=== PATIENT | male | born 1980 | race Caucasian/White ===

== ENCOUNTER → 2021-12-04 | Outpatient (CLI) | payer OTHER | END | disposition home or self-care (01) | LOC: LAB 17:12 → LAB SHORT 17:12 | PROVIDERS: Family Medicine | DX: F11.20 Opioid dependence, uncomplicated (principal) | CPT/HCPCS: G0480 ==

== ENCOUNTER 2022-12-06 09:41 | Emergency (ER) | payer OTHER ==
[~2022-12-06] VITALS: Ht 185.4 cm; Wt 90.7 kg
[2022-12-06] MEDS ORDERED: CEPH500 PO (10:32)
== END 2022-12-06 10:45 | disposition home or self-care (01) ==
LOC: ER 09:41
DX: S61.011A Laceration without foreign body of right thumb without damage to nail, initial encounter (principal); F17.200 Nicotine dependence, unspecified, uncomplicated; W26.8XXA Contact with other sharp object(s), not elsewhere classified, initial encounter; Z88.0 Allergy status to penicillin
CPT/HCPCS: 12001; 99282-25; A9270

== ENCOUNTER → 2023-03-15 | Outpatient (CLI) | payer OTHER ==
[~2023-03-15] MED LIST: CEPH500 PO
== END | disposition home or self-care (01) ==
LOC: LAB SHORT 14:10 → LAB 14:10
DX: L03.90 Cellulitis, unspecified (principal)
CPT/HCPCS: 87070; 87075; 87077; 87147; 87186; 87205

== ENCOUNTER 2023-09-17 18:37 | Emergency (ER) | payer OTHER ==
[~2023-09-17] VITALS: Ht 185.4 cm; Wt 81.7 kg
[2023-09-17 20:13] LABS: BASOPHILS PERCENT AUTO 1 % (0-2); EOSINOPHILS ABSOLUTE AUTO 1.25 K/mm3 (0.00-0.68); EOSINOPHILS PERCENT AUTO 10 % (0-6); Hematocrit 36.7 % (37.0-53.0); IMMATURE GRAN ABSOLUTE AUTO 0.03 K/mm3 (0.00-0.10); IMMATURE GRAN PERCENT AUTO 0 % (0-1); LYMPHOCYTES ABSOLUTE AUTO 2.14 K/mm3 (0.84-5.20); LYMPHOCYTES PERCENT AUTO 18 % (21-46); MONOCYTES PERCENT AUTO 8 % (4-13); Mean Corpuscular HGB 30.3 pg (26.0-34.0); Mean Corpuscular HGB Conc 32.7 g/dL (31.5-36.5); Mean Corpuscular Volume 93 fL (80-100); Mean Platelet Volume 9.4 fL (9.1-12.4); NEUTROPHILS ABSOLUTE AUTO 7.68 K/mm3 (1.96-9.15); NEUTROPHILS PERCENT AUTO 63 % (41-73); Platelet Count 342 K/mm3 (150-400); RDW Standard Deviation 44.4 fL (35.1-46.3); Red Blood Cell Count 3.96 M/mm3 (4.30-5.90)
[2023-09-17 20:41] LABS: Albumin, Blood 3.3 g/dL (3.4-5.0); Albumin/Globulin Ratio 0.9 (0.8-1.8); Bilirubin, Total 0.3 mg/dL (0.1-1.0); Bun/Creatinine Ratio 42.5 (12.0-20.0); Calcium, Blood 8.5 mg/dL (8.5-10.1); Creatinine, Blood 0.61 mg/dL (0.60-1.20); Globulin, Blood 3.6 g/dL (2.2-4.0); Total Protein, Blood 6.9 g/dL (6.4-8.2)
[2023-09-17 21:32] VITALS: BP 149/78
== END 2023-09-17 21:57 | disposition home or self-care (01) ==
LOC: ER 18:37
PROVIDERS: Emergency Medicine
DX: S22.41XA Multiple fractures of ribs, right side, initial encounter for closed fracture (principal); S00.83XA Contusion of other part of head, initial encounter; S80.01XA Contusion of right knee, initial encounter; S80.02XA Contusion of left knee, initial encounter; F17.200 Nicotine dependence, unspecified, uncomplicated; V86.59XA Driver of other special all-terrain or other off-road motor vehicle injured in nontraffic accident, initial encounter; Z88.0 Allergy status to penicillin
CPT/HCPCS: 70450; 70486; 71260; 72125; 73562-LT; 74177; 80053; 82150; 85025; 96374-59; 99284-25; A9270; J1885; Q9967

== ENCOUNTER 2024-09-15 21:50 | Emergency (ER) | payer OTHER ==
[~2024-09-15] VITALS: Ht 185.4 cm; Wt 90.7 kg
[2024-09-15 22:48] VITALS: BP 148/86
[2024-09-15] MEDS ORDERED: Cleocin HCl150 MG PO (22:52)
[2024-09-15] MEDS ORDERED: Clindamycin HCl 150 MG Cap PO ONE (22:55)
== END 2024-09-15 23:00 | disposition home or self-care (01) ==
LOC: ER 21:50
DX: K04.7 Periapical abscess without sinus (principal); F17.200 Nicotine dependence, unspecified, uncomplicated; Z88.0 Allergy status to penicillin
CPT/HCPCS: 99282; A9270

== ENCOUNTER 2025-07-02 19:42 | Inpatient (IN) | payer OTHER ==
[~2025-07-02] VITALS: Ht 185.4 cm; Wt 94.0 kg
[~2025-07-02 19:42] MED LIST changes: +Cleocin HCl150 MG PO
[2025-07-02] MEDS ORDERED: FentaNYL Citrate 50 MCG/ML 2 ML Injection ONE (19:52)
[2025-07-02] MEDS ORDERED: FentaNYL Citrate 50 MCG/ML 2 ML Injection IV ONE (19:55)
[2025-07-02 20:11] LABS: BASOPHILS ABSOLUTE AUTO 0.05 K/mm3 (0.00-0.23); BASOPHILS PERCENT AUTO 1 % (0-2); EOSINOPHILS ABSOLUTE AUTO 0.06 K/mm3 (0.00-0.68); EOSINOPHILS PERCENT AUTO 1 % (0-6); Hematocrit 41.0 % (37.0-53.0); Hemoglobin 14.3 g/dL (13.5-17.5); IMMATURE GRAN ABSOLUTE AUTO 0.02 K/mm3 (0.00-0.10); IMMATURE GRAN PERCENT AUTO 0 % (0-1); LYMPHOCYTES ABSOLUTE AUTO 2.24 K/mm3 (0.84-5.20); LYMPHOCYTES PERCENT AUTO 32 % (21-46); MONOCYTES ABSOLUTE AUTO 0.58 K/mm3 (0.16-1.47); MONOCYTES PERCENT AUTO 8 % (4-13); Mean Corpuscular HGB Conc 34.9 g/dL (31.5-36.5); Mean Corpuscular Volume 90 fL (80-100); NEUTROPHILS ABSOLUTE AUTO 4.02 K/mm3 (1.96-9.15); NEUTROPHILS PERCENT AUTO 58 % (41-73); NRBC ABSOLUTE 0.00 K/mm3 (0.00-0.02); NRBC Auto 0.0 /100 WBC (0.0-0.2); Platelet Count 277 K/mm3 (150-400); RDW Coefficient Variation 12.4 % (11.7-14.2); RDW Standard Deviation 40.5 fL (35.1-46.3)
[2025-07-02 20:26] LABS: Prothrombin Time Results 10.9 Sec (9.7-11.5)
[2025-07-02] MEDS ORDERED: HYDROmorphone HCl/Pf 1MG SYR IV ONE ×2 (20:30→22:05)
[2025-07-02 20:33] LABS: Alanine Aminotransfer (ALT/SGP 28.0 U/L (12-78); Albumin, Blood 3.8 g/dL (3.4-5.0); Albumin/Globulin Ratio 1.1 (0.8-1.8); Anion Gap 11.0 mmol/L (3-11); Aspartate Aminotrans (AST/SGOT 22.0 U/L (12-37); Bilirubin, Total 0.3 mg/dL (0.1-1.0); Blood Urea Nitrogen 19.0 mg/dL (8-24); CO2, Blood 21.0 mmol/L (21-32); Calcium, Blood 9.4 mg/dL (8.5-10.1); Chloride, Blood 112.0 mmol/L (98-108); Creatinine, Blood 0.85 mg/dL (0.60-1.20); Ethanol (Alcohol), Blood, Med 20.0 mg/dL; Globulin, Blood 3.4 g/dL (2.2-4.0); Glucose, Blood 106.0 mg/dL (70-99); Potassium, Blood 3.8 mmol/L (3.5-5.5); Sodium, Blood 140.0 mmol/L (136-145); Total Protein, Blood 7.2 g/dL (6.4-8.2)
[2025-07-02] MEDS ORDERED: NS 1,000 ML IV SCH (21:35)
[2025-07-02] MEDS ORDERED: Ondansetron HCl 2 MG / ML 2ML Vial IV PRN (21:35)
[2025-07-02] MEDS ORDERED: HYDROmorphone HCl/Pf 1MG SYR IV PRN (21:35)
[2025-07-02] MEDS ORDERED: Ketamine HCl 100 MG / ML 5ML Vial IV ONE ×2 (22:10→22:30)
[2025-07-02 23:00] VITALS: BP 140/91
[2025-07-03] VITALS (19 sets, daily range): BP systolic 117–141; BP diastolic 80–98
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
--- NOTE | 2025-07-03 04:36 | NUR ---
NURSE NOTE PULSE CHECK: PULSES PRESENT RLE HARDER TO FIND. SWELLING IN FOOT HAS INCREASED. PULSE MARKED W/ MARKER AND LISTENED TO W/ DOOPLER. PT WILL NOT ALLOW US TO LIFT LEG ONTO PILLOW BUT DID ALLOW US TO RAISE THE FOOT OF THE BED. ICE BAGS PROVIDED AND PLACED AROUND LEG. MEDICATED PER EMAR. BED IN LOW, CALL LIGHT IN REACH.
[2025-07-03] MEDS ORDERED: HYDROmorphone HCl/Pf 1MG SYR IV PRN (07:40)
[2025-07-03] MEDS ORDERED: Ondansetron HCl 2 MG / ML 2ML Vial IV PRN (07:40)
[2025-07-03] MEDS ORDERED: Magnesium Hydroxide Conc 10 ML UDC PO PRN (07:40)
[2025-07-03] MEDS ORDERED: Ketorolac Tromethamine 15mg Vial IV PRN (07:55)
[2025-07-03] MEDS ORDERED: CeFAZolin Sodium 1,000 MG in NS 50 ML IV SCH (10:00)
--- NOTE | 2025-07-03 10:26 | NUR ---
PT HAS 20G IV TO RIGHT HAND THAT FLUSHES WELL AND FLOWS TO GRAVITY.
[2025-07-03] MEDS ORDERED: FentaNYL Citrate 50 MCG/ML 5 ML Injection ONE (10:30)
--- NOTE | 2025-07-03 10:36 | NUR ---
TO [facility] FOR PROCEDURE. TEARFUL/ANXIOUS. DAUGHTER AT BEDSIDE. RIGHT LOWER EXTREM WITH FRACTURE/OPEN WOUNDS. History, Chart, Medications and Allergies reviewed before start of procedure. Pre-Op teaching done. Pt verbalizes understanding. Patient confirms NPO status and agrees with scheduled surgery.
[2025-07-03] MEDS ORDERED: Dexamethasone Sod Phos 10 MG/ML 1ML VIAL ONE (10:39)
[2025-07-03] MEDS ORDERED: Ondansetron HCl 2 MG / ML 2ML Vial ONE (10:39)
--- NOTE | 2025-07-03 11:14 | NUR ---
PT WITH SURGICAL NURSES @3187
--- NOTE | 2025-07-03 11:27 | NUR ---
ASSUMED CARE OF PT @0700 VSS. AXO4 - PAINFUL - MEDS ADMINISTERED PER EMAR. PT STATES PAIN IS BECOMING INTENSE, PEDAL PULSE SLIGHTLY PALPABLE BUT DOPPLER USED TO CONFIRM. CAP REFILL <3SEC TO TOE BUT DOES HAVE A LIGHTENED COLOR APPEARANCE. SPLINT IN PLACE. PT VERBALIZED FEELING TOES WHEN NURSE PALPATED - WIGGLED TOES. FLUIDS INFUSING. ICE BACKS TO LEG. PT SURGERY TIME BUMPED UP AFTER SEEING DR JACOBS. SEE SURGICAL NURSE ASSUMPTION TIME. AWAITING PT TO ARRIVE BACK TO UNIT.
[2025-07-03] MEDS ORDERED: HYDROmorphone HCl/Pf 1MG SYR ONE (12:15)
--- NOTE | 2025-07-03 13:00 | NUR ---
PT ARRIVES BACK TO UNIT @1240 ALERT BUT SLEEPING POST PAIN MEDS. VSS FIRST SET. EXTERNAL FIXATION PRESENT. WOUND VAC WITH Y SITES TO INSIDE AND OUTSIDE CALF AREA PRESENT - RED DRAINAGE NOTED. JUJU WRAP WITH GAUZE DRESSINGS PRESENT - UNABLE TO VISUALIZE SURGICAL SITE AREAS YET. PULSES SLIGHTLY PALPABLE TO R PEDAL AREA, DOPPLER CONFIRMED PLACEMENT - AREAS MARKED X2. CAP REFILL <3SEC. ON 2LNC CURRENTLY, SPO2 >94%. RESTING CURRENTLY.
[2025-07-03] MEDS ORDERED: FLU VACC TS2025-26(6MOS UP)/PF 45 MCG/0.5 ML SYRINGE IM SCH (14:00)
--- NOTE | 2025-07-03 17:34 | NUR ---
POST SURGERY - SEE REASSUMPTION OF CARE NOTE NO ACUTE CHANGES TO PT'S CONDITION. REMAINS PAINFUL TO RLEG - PAIN MEDS PER EMAR BEING ADMINISTERED. DRESSING TO R LEG REMAINS CDI WITH SMALL AMOUNT OF SANGUIONOUS DRAINAGE TO FIXATION BRYCE SITED, SWELLING DECREASED TO LEG. PEDAL PULSES PRESENT, MARKED ON 2 SITES, DOPPLER BEING UTILIZED TO VERIFY PULSE POSITIONING. COBRA TRANSFER ORDERS PLACED - PT GOING TO [facility]- FAMILY IN ROOM AND AWARE. UPDATED ON SURGICAL STATUS, PROCEEDINGS, AND INCLINATION FOR TRANSFER. [facility] TO ROOM, REPORT GIVEN. VSS. MEDICATED FOR PAIN ONCE MORE. FLUIDS GIVEN TO AMBULANCE TEAM TO INFUSE ORDERED. WOUND VAC REMINED PATEWNT - 200ML SANGUINOUS OUTPUT. ZAYAS PATENT AND DRAINING. EXTERNAL FIXATION STABLE. PT OUT OF ROOM VIA TARYN @[id number].
--- NOTE | 2025-07-03 18:06 | NUR ---
REPORT GIVEN TO JOSE LUIS CONTRERAS
[2025-07-04] MEDS ORDERED: Enoxaparin 40 MG/0.4 ML SYR SC SCH (09:00)
== END 2025-07-03 17:50 | disposition short-term general hospital (02) | DRG 493 ==
LOC: ER 19:42 → SURS 21:36
PROVIDERS: Emergency Medicine; Orthopaedic Surgery; ADMIT Surgery
PROC: 0KNS0ZZ Release Right Lower Leg Muscle, Open Approach (ICD-10-PCS; 2025-07-03)
PROC: 0QSG35Z Reposition Right Tibia with External Fixation Device, Percutaneous Approach (ICD-10-PCS; principal; 2025-07-03 10:30)
DX: S82.251A Displaced comminuted fracture of shaft of right tibia, initial encounter for closed fracture (principal); T79.A21A Traumatic compartment syndrome of right lower extremity, initial encounter; S82.451A Displaced comminuted fracture of shaft of right fibula, initial encounter for closed fracture; F17.210 Nicotine dependence, cigarettes, uncomplicated; M54.2 Cervicalgia; F10.10 Alcohol abuse, uncomplicated; Z88.0 Allergy status to penicillin; Z79.899 Other long term (current) drug therapy; V23.49XA Other motorcycle driver injured in collision with car, pick-up truck or van in traffic accident, initial encounter
CPT/HCPCS: 29505; 70450; 71260; 72125; 73552; 73560-RT; 73590; 73610; 73700; 73701; 74177; 76377; 80053; 80320; 83690; 85025; 85610; 86850; 86900; 86901; 93005; 93010; 96374-59; 96375-59; 99285-25; A9270; J0690; J1100; J1171; J1885; J2405; J2704; J3010; J7030; J7120; Q9967

== ENCOUNTER 2025-08-02 02:31 | Day surgery (SDC) | payer OTHER ==
[2025-08-02] MEDS ORDERED: Lidocaine HCl 4% Cream 5 GM ONE (07:43)
== END 2025-08-02 23:00 | disposition home or self-care (01) ==
LOC: WOUND 02:31
DX: T79.A21D Traumatic compartment syndrome of right lower extremity, subsequent encounter (principal); F17.290 Nicotine dependence, other tobacco product, uncomplicated; Z88.0 Allergy status to penicillin
CPT/HCPCS: A9270; G0463

== ENCOUNTER → 2025-08-22 | Outpatient (CLI) | payer OTHER | LOC: LAB SHORT 18:58 → LAB 18:58 | DX: L02.411 Cutaneous abscess of right axilla (principal) | CPT/HCPCS: 87070; 87075; 87077; 87147; 87186; 87205 ==